=== PATIENT | male | born 1990 | race Two or more races ===

== ENCOUNTER 2020-12-18 18:24 | Emergency (ER) | payer BC ==
--- NOTE | 2020-12-18 19:50 | EDM.PDOC ---
ED HPI GENERAL MEDICAL PROBLEM - General Chief Complaint: Abdominal Pain Stated Complaint: ABDOMINAL PAIN Time Seen by Provider: 12/18/20 19:33 Source of Information: Reports: Patient History Limitations: Reports: No Limitations - History of Present Illness INITIAL COMMENTS - FREE TEXT/NARRATIVE: Mr. Lei is a very pleasant 30-year-old gentleman who now presents to the ED stating that he developed right upper quadrant abdominal discomfort, along with some dyspnea, around 18:00 yesterday evening, 12/17/2020. His pain developed before he had dinner. He states that the discomfort is constant, made worse with sitting, better if he is upright. It does not radiate. He had some watery diarrhea today. No recent nausea, vomiting, fever, chills, or urinary symptoms. No prior similar symptoms. The patient has not taken any [id number] or home remedies since the onset of his symptoms. He last ate around 13:00 this afternoon. Here in the ED, the patient's initial BP is found to be modestly elevated at 159/98, otherwise, he is hemodynamically stable, afebrile, saturating 97% on room air. He appears to be comfortable, in no acute distress. The patient states that he was diagnosed with COVID-19 on 12/03/2020. He states that he still has a loss of smell, otherwise, all of his symptoms have resolved. He denies having a recent sore throat, ear pain, nasal or sinus congestion, cough, dyspnea, chest pain, palpitations, constipation, urinary symptoms, recent weight gain or weight loss, recent bloody bowel movements or black bowel movements, recent joint aches, headaches, or rashes. The patient does not have a PCP. He has received 2 COVID vaccinations, although no influenza vaccination this season. Right Upper Abdomen Pain Score (Numeric/FACES): 5 - Related Data Allergies Allergy/AdvReac Type Severity Reaction Status Date / Time No Known Allergies Allergy Verified 12/18/20 19:36 Home Meds: Home Meds . [No Known Home Meds] 12/18/20 [History] Past Medical History Endocrine/Metabolic History: Reports: Obesity/BMI 30+ - Infectious Disease History Infectious Disease History: Reports: Novel Coronavirus (dx'd 12/03/2020) - Past Surgical History Musculoskeletal Surgical History: Reports: Arthroscopic Knee (left), Shoulder Surgery (left, arthroscopic) Social & Family History - Tobacco Use Tobacco Use Status *Q: Never Tobacco User - Caffeine Use Caffeine Use: Reports: Coffee - Alcohol Use Alcohol Use History: Yes Alcohol Use Frequency: Socially - Recreational Drug Use Recreational Drug Use: No - Living Situation & Occupation Living situation: Reports: Single, Other (with friends) 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 ED EXAM, GI/ABD - Physical Exam Exam: See Below Exam Limited By: No Limitations General Appearance: Alert, WD/WN, No Apparent Distress Eyes: Bilateral: Normal Appearance, EOMI Ears: Normal External Exam, Hearing Grossly Normal Nose: Normal Inspection Throat/Mouth: Normal Inspection, Normal Lips, Normal Voice, No Airway Compromise Head: Atraumatic, Normocephalic Neck: Normal Inspection, Full Range of Motion Respiratory/Chest: No Respiratory Distress, Lungs Clear, Normal Breath Sounds, No Accessory Muscle Use Cardiovascular: Normal Peripheral Pulses, Regular Rate, Rhythm, No Edema, No Gallop, No JVD, No Murmur, No Rub GI/Abdominal Exam: Normal Bowel Sounds, Soft, No Organomegaly, No Distention, No Abnormal Bruit, No Mass, Tender (Mild, right upper quadrant only. Nontender elsewhere.) Back Exam: Normal Inspection, Full Range of Motion. No: CVA Tenderness (L), CVA Tenderness (R) Extremities: Normal Inspection, Normal Range of Motion, No Pedal Edema, Normal Capillary Refill Neurological: Alert, Oriented, Normal Cognition, No Motor/Sensory Deficits Psychiatric: Normal Affect Skin Exam: Warm, Dry, Intact, Normal Color, No Rash Course - Vital Signs Last Recorded V/S: Last Vital Signs Temp 36.5 C 12/18/20 19:33 Pulse 73 12/18/20 19:33 Resp 16 12/18/20 19:33 BP 159/98 H 12/18/20 19:33 Pulse Ox 97 12/18/20 19:33 - Orders/Labs/Meds Orders: Active Orders 24 hr Category Date Time Status Abdomen Pelvis w Cont [CT] Stat Exams 12/18/20 19:47 Taken Sodium Chloride 0.9% [Normal Saline] 1,000 ml Med 12/18/20 20:00 Active IV ASDIRECTED Medication Orders Sodium Chloride (Normal Saline) 1,000 mls @ 150 mls/hr IV ASDIRECTED LINDA Last Admin: 12/18/20 21:10 Dose: 150 mls/hr Documented by: TAMY Labs: Laboratory Tests 12/18/20 12/18/20 Range/Units 20:00 20:00 WBC 7.11 (4.23-9.07) K/mm3 RBC 5.43 (4.63-6.08) M/mm3 Hgb 15.2 (13.7-17.5) gm/dl Hct 45.1 (40.1-51.0) % MCV 83.1 (79.0-92.2) fl MCH 28.0 (25.7-32.2) pg MCHC 33.7 (32.2-35.5) g/dl RDW Std Deviation 37.7 (35.1-43.9) fL Plt Count 223 (163-337) K/mm3 MPV 11.5 (9.4-12.3) fl Neutrophils % (Manual) 50 (40-60) % Band Neutrophils % 0 (0-10) % Lymphocytes % (Manual) 40 (20-40) % Atypical Lymphs % 5 % Monocytes % (Manual) 4 (2-10) % Eosinophils % (Manual) 1 (0.8-7.0) % Basophils % (Manual) 0 L (0.2-1.2) Platelet Estimate Adequate RBC Morph Comment Normal Sodium 140 (136-145) mEq/L Potassium 3.8 (3.5-5.1) mEq/L Chloride 103 (98-107) mEq/L Carbon Dioxide 26 (21-32) mEq/L Anion Gap 14.8 (5-15) BUN 11 (7-18) mg/dL Creatinine 1.2 (0.7-1.3) mg/dL Est Cr Clr Drug Dosing 93.78 mL/min Estimated GFR (MDRD) > 60 (>60) mL/min BUN/Creatinine Ratio 9.2 L (14-18) Glucose 91 (70-99) mg/dL Calcium 8.7 (8.5-10.1) mg/dL Total Bilirubin 0.3 (0.2-1.0) mg/dL AST 41 H (15-37) U/L ALT 98 H (16-63) U/L Alkaline Phosphatase 80 (46-116) U/L Total Protein 7.9 (6.4-8.2) g/dl Albumin 4.3 (3.4-5.0) g/dl Globulin 3.6 gm/dL Albumin/Globulin Ratio 1.2 (1-2) Lipase 117 (73-393) U/L Meds: Medications Generic Name Dose Route Start Last Admin Trade Name Freq PRN Reason Stop Dose Admin Sodium Chloride 1,000 mls @ 150 mls/hr 12/18/20 20:00 12/18/20 21:10 Normal Saline IV 150 mls/hr ASDIRECTED LINDA Administration Discontinued Medications Generic Name Dose Route Start Last Admin Trade Name Freq PRN Reason Stop Dose Admin Diatrizoate Meglum/Diatrizoate Sod 60 ml 12/18/20 20:29 12/18/20 21:54 Diatrizoate Meglumine/Diatrizoate Sodium 37% 120 Ml Bottle PO 12/18/20 20:30 60 ml ONETIME ONE Administration Iopamidol 100 ml 12/18/20 20:29 12/18/20 21:54 Iopamidol 612 Mg/Ml 100 Ml Bottle IVPUSH 12/18/20 20:30 100 ml ONETIME ONE Administration Iopamidol 25 ml 12/18/20 20:29 12/18/20 21:55 Iopamidol 612 Mg/Ml 50 Ml Sdv IVPUSH 12/18/20 20:30 25 ml ONETIME ONE Administration - Re-Assessments/Exams Free Text/Narrative Re-Assessment/Exam: 12/18/20 19:49 I have ordered a work-up that includes several blood tests, an ultrasound of the right upper quadrant, and a CT of the abdomen and pelvis with oral and IV con trast. In the meantime, the patient will be given IV fluid. He declined an offer for both pain medication and antinausea medication at this time. 12/18/20 20:50 Ultrasound of the right upper quadrant is read by Dr. Corona as: 1. Fatty infiltration within the liver with focal fatty sparing next to the gallbladder. 2. Gallbladder is not well seen but shows no discrete shadowing cholelithiasis, gallbladder wall thickening or discrete biliary duct dilatation. 3. Pancreas is incompletely seen with visualized portions appearing within normal limits. 4. Other findings as noted above. 12/18/20 21:23 The patient's CBC is unremarkable. His CMP is remarkable for an AST/ALT mildly elevated at 41/98, respectively, and is otherwise unremarkable. His lipase level is within normal limits at 117. 12/18/20 22:56 CT of the abdomen and pelvis with oral and IV contrast is read by [facility] as: 1. Minimal hazy peripancreatic fat concerning for acute pancreatitis. 2. Fatty infiltration of the liver. 12/18/20 23:10 Test results discussed with the patient. I explained that the diagnosis of pancreatitis is made by the patient having 2 or 3 of the following 3 criterion: 1. Characteristic pain 2. An amylase or lipase level 3 times or above the upper limit 3. Inflammation on an imaging study, such as a CT, MRI, or ultrasound In this case, the patient's pain is not characteristic of acute pancreatitis, and his lipase level is within normal limits. At this time, therefore, I cannot give him a diagnosis of pancreatitis, despite the CT findings. I suspect that his pain is related to his gallbladder, therefore I will refer him to Dr. Marquez for further evaluation that will likely include a HIDA scan. I will recommend that he eat a low-fat diet. The patient declined an offer for pres criptions for pain medication and antinausea medicine, as well as for a note to be off work. Departure - Departure Time of Disposition: 23:11 Disposition: Home, Self-Care 01 Condition: Good Clinical Impression: Right upper quadrant abdominal pain of unknown etiology - Discharge Information *PRESCRIPTION DRUG MONITORING PROGRAM REVIEWED*: Not Applicable *COPY OF PRESCRIPTION DRUG MONITORING REPORT IN PATIENT ROMIE: Not Applicable Referrals: PCP,None [Primary Care Provider] - Raymundo Marquez MD [Physician] - Forms: ED Department Discharge Additional Instructions: You were seen in the emergency room for upper right abdominal discomfort, shortness of breath, and watery diarrhea. Work-up in the ER included several blood tests, and ultrasound of your upper right abdomen, and a CT of your abdomen and pelvis with oral and IV contrast. The CT indicated some possible inflammation of your pancreas, however, the remainder of your work-up was unremarkable, and does not explain the cause of your pain. Based on your history, physical exam, and ER tests, it is highly likely that your gallbladder is related to the cause of your pain. Further evaluation is needed. Going forward, we recommend that you eat as low-fat a diet as possible. Stay adequately hydrated. Please follow-up with the Surgeon Dr. Raymundo Marquez at the next available appointment, for further evaluation. Make sure that the log yard manager understands that you are following up from the ER. If any other problems, please do not hesitate to return to the ER. Sepsis Event Note (ED) - Evaluation Sepsis Screening Result: No Definite Risk - Focused Exam Vital Signs: Vital Signs Temp Pulse Resp BP Pulse Ox 12/18/20 19:33 36.5 C 73 16 159/98 H 97 - My Orders Last 24 Hours: My Active Orders 12/18/20 19:47 Abdomen Pelvis w Cont [CT] Stat 12/18/20 20:00 Sodium Chloride 0.9% [Normal Saline] 1,000 ml IV ASDIRECTED - Assessment/Plan Last 24 Hours: My Active Orders 12/18/20 19:47 Abdomen Pelvis w Cont [CT] Stat 12/18/20 20:00 Sodium Chloride 0.9% [Normal Saline] 1,000 ml IV ASDIRECTED
[2020-12-18] MEDS ORDERED: Sodium Chloride 0.9% 1,000 ML IV SCH (20:00)
[2020-12-18] MEDS ORDERED: Iopamidol 612 MG/ML 50 ML SDV IVPUSH ONE (20:29)
[2020-12-18] MEDS ORDERED: Diatrizoate Meglumine/Diatrizoate Sodium 37% 120 ML Bottle PO ONE (20:29)
[2020-12-18] MEDS ORDERED: Iopamidol 612 MG/ML 100 ML Bottle IVPUSH ONE (20:29)
--- NOTE | 2020-12-18 20:36 | US ---
Limited abdominal ultrasound: Multiple real-time images of the upper right abdomen were obtained. Comparison: No prior abdominal imaging is available. Findings: Liver is echogenic. Small amount of focal fatty sparing is noted next to the gallbladder. Gallbladder is not well distended but shows no discrete shadowing gallstones. No gallbladder wall thickening or biliary duct dilatation is seen. Right kidney shows no hydronephrosis or mass. Right kidney has a length of 12.7 cm. Pancreas is suboptimally seen. Visualized portions of the pancreas show no discrete abnormality. Proximal aorta shows an AP dimension of 2.8 cm. Inferior vena cava is patent. Main portal vein shows normal hepatopedal flow. Impression: 1. Fatty infiltration within the liver with focal fatty sparing next to the gallbladder. 2. Gallbladder is not well seen but shows no discrete shadowing cholelithiasis, gallbladder wall thickening or discrete biliary duct dilatation. 3. Pancreas is incompletely seen with visualized portions appearing within normal limits. 4. Other findings as noted above. Diagnostic code #2
--- NOTE | 2020-12-19 06:50 | CT ---
CT abdomen and pelvis Technique: Multiple axial sections were obtained from above the dome of the diaphragm inferiorly through the pubic symphysis. Intravenous and oral contrast were utilized. Delayed images were also obtained through the bladder. Reconstructed coronal and sagittal images were obtained. Comparison: Prior right upper quadrant abdominal ultrasound performed earlier on the same day (7:56 PM). Findings: Visualized lung bases show nothing acute. Liver shows diffuse fatty infiltration without focal abnormality. Spleen size is normal. Adrenal glands show no nodule. Kidneys show symmetric contrast enhancement without hydronephrosis or mass. Pancreas shows no discrete abnormality. Abdominal aorta shows no aneurysm. No retroperitoneal adenopathy or mesenteric abnormalities are seen. Minimal fat-containing umbilical hernia is noted. Appendix is seen which is normal. No pelvic mass or adenopathy is seen. No free fluid or inflammatory change is appreciated. Delayed images show contrast within the distal left ureter and within the bladder. Bone window settings were reviewed which show scattered degenerative change within the spine. No acute osseous finding is appreciated. Impression: 1. Fatty infiltration within the liver. 2. No definite findings of pancreatitis are seen. Please correlate with patient's amylase and lipase to confirm. This finding may be a disagree with preliminary report. 3. Mild degenerative change scattered within the spine with small fat-containing umbilical hernias. Diagnostic code #2 I questionably disagree with preliminary report from [facility] finalized on 12/18/20, 11:39 PM CDT, code 2
== END 2020-12-18 23:38 | disposition home or self-care (01) ==
LOC: JD.ED 18:24
DX: R10.11 Right upper quadrant pain (principal); E66.9 Obesity, unspecified; Z68.37 Body mass index [BMI] 37.0-37.9, adult; Z86.16 Personal history of COVID-19
CPT/HCPCS: 36415; 74177; 76705; 80053; 83690; 85007; 85027; 99284; J7030; Q9963; Q9967